=== PATIENT | male | born 1995 | race Caucasian/White ===

== ENCOUNTER 2023-03-07 13:15 | Day surgery (SDC) | payer OTHER, SELFPAY ==
[2023-02-28 15:13] VITALS: BMI 25.1
[2023-03-07] MEDS: LACTATED RINGERS 1,000 ML 42 ML IV ×2 (13:37→16:18)
[2023-03-07 13:51] VITALS: BP 146/83; PULSE 83; RESP 16; TEMP 36.9; O2SAT 100; BMI 25.8
--- NOTE | 2023-03-07 14:34 | SUR.OPER ---
Supine on padded OR bed, head on pillow, arms secured on padded arm boards at <90 degrees abduction, legs uncrossed, safety belt at thigh, tape over blanket over lower legs.
--- NOTE | 2023-03-07 15:14 | PM.PREOP ---
Pre-operative Note Interval Note History & Physical reviewed/Exam performed by Physician: Yes Changes to H&P: No
[2023-03-07] MEDS: CEFAZOLIN 2 GM/100 ML PREMIX 100 ML IV (15:40)
[2023-03-07] MEDS: ACETAMINOPHEN IV 1,000 MG/100 ML VIAL 400 MG IV (15:50)
[2023-03-07] MEDS: BUPIVACAINE 0.25% (PF) VIAL 30 ML INJ (15:56)
[2023-03-07 16:30] VITALS: BP 158/93; PULSE 93; RESP 12; TEMP 36.4; O2SAT 100
--- NOTE | 2023-03-07 16:30 | PM.OP.1 ---
Operative Date/Time/Diagnoses Date of procedure: 03/07/23 Time of procedure: 16:30 Pre-op diagnosis: Soft tissue neoplasm of neck 2 cm and chest 3 cm Post-op diagnosis: same Procedure & Clinicians Procedure: Excision of soft tissue neoplasm from neck and chest wall. Same procedure as scheduled: Yes Indications: 27-year-old healthy male with symptomatic soft tissue masses involving chest and submental space Surgeon: Ryder Rivera Anesthesia Type: General Operative Notes Findings: Soft tissue masses consistent sebaceous cysts Specimen(s): none sent Estimated Blood Loss (mL): 5 Procedure in detail: Patient was brought to the operating room placed supine on the table. Bilateral lower extremity compression devices applied. General anesthesia induced he was intubated with an endotracheal tube. Received 2 g of Ancef prior to skin incision. He was prepped and draped in sterile fashion. Time-out performed. Midline incision was made beneath the chin. The subcutaneous tissue was divided and we encountered a cyst of approximately 2 cm. Cyst and associated sac was excised in its entirety consistent in appearance with a sebaceous cyst. Hemostasis was achieved and the skin was closed with Monocryl. Incision was made over the left chest wall there was a 2-3 cm cyst again removed in its entirety. Wound was irrigated thoroughly and hemostasis was achieved. The subcutaneous tissue was reapproximated with PDS suture the skin closed with Monocryl. Finally a less than 1 cm lesion on the right chest wall was excised and closed in similar fashion. All the incisions were then sealed with Dermabond. A total of 30 mL of 0.25% bupivacaine was used for local anesthesia. He tolerated the procedure well was extubated and transferred to recovery in stable condition. Complications: none Post-operative Condition: stable Disposition: same day surgery
[2023-03-07 16:36] VITALS: BP 161/97; PULSE 93; RESP 12; TEMP 36.4; O2SAT 99
[2023-03-07] MEDS: OXYCODONE IR 5 MG TABLET PO (16:37)
[2023-03-07 16:45] VITALS: BP 148/82; PULSE 76; RESP 12; TEMP 36.4; O2SAT 99
[2023-03-07 17:06] VITALS: BP 149/87; PULSE 79; RESP 14; TEMP 36.4; O2SAT 99
== END 2023-03-07 17:08 | disposition home or self-care (01) ==
PROVIDERS: Referring Provider Surgery; Visit Provider Surgery
PROC: (CPT 11422; principal; 2023-03-07 14:45)
DX: R22.1 Localized swelling, mass and lump, neck (principal); R22.2 Localized swelling, mass and lump, trunk
CPT/HCPCS: 11422; 11403; 12032; J0131; J0330; J0690; J1100; J1170; J1885; J2405; J2704